=== PATIENT | female | born 2000 | race Caucasian/White ===

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

== ENCOUNTER → 2022-02-24 | Outpatient (CLI) | payer OTHER, SELFPAY ==
[2022-02-24 09:12] LABS: Hematocrit 28.2 % (37-47); Hemoglobin 8.9 g/dL (12.0-15.0); Mean Corp Hgb Conc 31.6 g/dL (32-36); Mean Corpuscular Hgb 23.6 pg (27.0-32.0); Mean Corpuscular Volume 74.8 fL (81-99); Mean Platelet Vol. 10.3 fl (6.2-12.0); Platelet Count 306 K/mm3 (150-450); RBC Distribution Width CV 14.6 % (11.6-14.6); RBC Distribution Width SD 39.6 fl (35.1-43.9); Red Blood Count 3.77 M/mm3 (4.2-5.4); White Blood Count 14.9 K/mm3 (4.4-11.0)
[2022-02-24 09:19] LABS: Glucose Challenge Gest 1H 50g 113 mg/dL (70-140)
== END | disposition home or self-care (01) ==
PROVIDERS: Visit Provider Student in an Organized Health Care Education/Training Program
DX: O23.593 Infection of other part of genital tract in pregnancy, third trimester (principal); N76.0 Acute vaginitis; Z3A.00 Weeks of gestation of pregnancy not specified
CPT/HCPCS: 36415; 82950; 85027

== ENCOUNTER → 2022-04-09 | Outpatient (CLI) | payer OTHER, SELFPAY ==
[2022-04-09 11:57] LABS: Hemoglobin 9.7 g/dL (12.0-15.0); Mean Corp Hgb Conc 30.3 g/dL (32-36); Mean Corpuscular Hgb 21.9 pg (27.0-32.0); Mean Corpuscular Volume 72.4 fL (81-99); Mean Platelet Vol. 10.4 fl (6.2-12.0); Platelet Count 317 K/mm3 (150-450); RBC Distribution Width CV 16.9 % (11.6-14.6); RBC Distribution Width SD 43.1 fl (35.1-43.9); Red Blood Count 4.42 M/mm3 (4.2-5.4); White Blood Count 11.4 K/mm3 (4.4-11.0)
[2022-04-09 12:17] LABS: ALB/GLOB Ratio 0.7 RATIO (0.9-2.4); AST(SGOT) 16 U/L (15-37); Alanine Aminotransfer ALT/SGPT 16 U/L (13-56); Albumin, Serum 2.9 g/dL (3.2-5.0); Alkaline Phosphatase 104 U/L (45-117); Anion Gap 6 (5-15); BUN 8 mg/dL (7-18); BUN/Creat Ratio 14.7 RATIO (10-20); Calcium,Total 8.8 mg/dL (8.5-10.1); Chloride 107 mmol/L (98-107); Creatinine, Serum 0.55 mg/dL (0.55-1.02); EST Glomerular Filtration Rate 151 mL/min (>60); Est Glom Filt Rate - Afr Amer 182 mL/min (>60); Ferritin 3 ng/mL (8-252); Globulin 3.9 g/dL (2.2-4.2); Glucose 102 mg/dL (74-106); Potassium 3.6 mmol/L (3.5-5.1); Protein, Total 6.8 g/dL (6.4-8.2); Sodium Level 138 mmol/L (136-145)
== END | disposition home or self-care (01) ==
PROVIDERS: Visit Provider Student in an Organized Health Care Education/Training Program
DX: O99.891 Other specified diseases and conditions complicating pregnancy (principal); R11.0 Nausea; O99.013 Anemia complicating pregnancy, third trimester; Z3A.00 Weeks of gestation of pregnancy not specified
CPT/HCPCS: 36415; 80053; 82728; 85027

== ENCOUNTER → 2022-04-28 | Outpatient (CLI) | payer OTHER, SELFPAY ==
[2022-04-28 11:58] LABS: Hematocrit 33.9 % (37-47); Hemoglobin 9.9 g/dL (12.0-15.0); Mean Corp Hgb Conc 29.2 g/dL (32-36); Mean Corpuscular Hgb 21.4 pg (27.0-32.0); Mean Corpuscular Volume 73.4 fL (81-99); Platelet Count 328 K/mm3 (150-450); RBC Distribution Width CV 19.8 % (11.6-14.6); RBC Distribution Width SD 50.4 fl (35.1-43.9); Red Blood Count 4.62 M/mm3 (4.2-5.4); White Blood Count 12.2 K/mm3 (4.4-11.0)
== END | disposition home or self-care (01) ==
PROVIDERS: Visit Provider Obstetrics & Gynecology
DX: O99.013 Anemia complicating pregnancy, third trimester (principal); Z3A.00 Weeks of gestation of pregnancy not specified; Z36.85 Encounter for antenatal screening for Streptococcus B
CPT/HCPCS: 36415; 85027; 87081

== ENCOUNTER 2022-05-10 23:20 | Outpatient (CLI) | payer OTHER, SELFPAY ==
[2022-05-10 23:34] VITALS: BP 134/85; PULSE 98
[2022-05-10 23:42] VITALS: BMI 26.9
[2022-05-11 01:14] VITALS: PULSE 66; O2SAT 97
--- NOTE | 2022-05-11 08:28 | PCM.PN.BLA ---
Progress Note 22-year-old G1 at 38/5 weeks presenting with contractions. Patient had intercourse earlier in the evening, reports contractions. Denies leaking of fluid or vaginal bleeding. Cervical exam 2 cm per RN, unchanged on repeat examination. Contractions spaced. Patient appeared comfortable in room per RN. Discharge home with labor precautions as there is no cervical change, patient on labor. status reassuring, heart rate 120/moderate variability/+ accelerations/-decelerations. Follow-up in office as routine.
== END 2022-05-11 01:45 | disposition home or self-care (01) ==
LOC: WPOUT 23:29 → WP 23:29
PROVIDERS: Visit Provider Student in an Organized Health Care Education/Training Program
DX: O47.1 False labor at or after 37 completed weeks of gestation (principal); Z3A.38 38 weeks gestation of pregnancy
CPT/HCPCS: 59025; 59050; 99218; G0378

== ENCOUNTER 2022-05-24 13:18 | Inpatient (IN) | payer OTHER, SELFPAY ==
[2022-05-24] VITALS (33 sets, daily range): BP systolic 104–146; BP diastolic 55–92; PULSE 53–111; RESP 18; TEMP 36.6–37.2; O2SAT 84–100; BMI 26.6
[2022-05-24] MEDS: LACTATED RINGERS 500 ML 999 ML IV (13:40)
[2022-05-24 13:52] LABS: Absolute Lymphocyte Count 2.36 X10^3/uL (0.83-4.51); Absolute Neutrophil Count 12.7 X10^3/uL (2.0-7.7); Basophil# 0.07 X10^3/uL; Basophil% 0.4 % (0-1); Eosinophil# 0.07 X10^3/uL; Eosinophils% 0.4 % (0-5); Hematocrit 37.2 % (37-47); Hemoglobin 11.9 g/dL (12.0-15.0); Lymphocyte # 2.36 X10^3/ul (0.83-4.51); Lymphocyte % 14.3 % (19-41); Mean Corpuscular Hgb 23.4 pg (27.0-32.0); Mean Corpuscular Volume 73.2 fL (81-99); Monocyte# 1.17 X10^3/uL; Monocyte% 7.1 % (0-10); NRBC Flagged by Analyzer 0 % (0-5); Neutrophil % 77.2 % (47-70); POSITIVE MORPHOLOGY YES; Platelet Count 294 K/mm3 (150-450); RBC Distribution Width CV 22.8 % (11.6-14.6); RBC Distribution Width SD 58.4 fl (35.1-43.9); Red Blood Count 5.08 M/mm3 (4.2-5.4); White Blood Count 16.5 K/mm3 (4.4-11.0)
[2022-05-24 13:53] LABS: Differential Indicated SCAN CRITERIA MET
[2022-05-24] MEDS: Lactated Ringers 1,000 ML 50 ML IV (14:00)
[2022-05-24] MEDS: fentaNYL-bupivacaine (epidural) 100 ML BAG EPIDURAL ×2 (14:40→19:18)
[2022-05-24 14:45] LABS: Anisocytosis 1+
--- NOTE | 2022-05-24 15:56 | PCM.HP.BLA ---
History and Physical Date of Admission: 05/24/22 Chief complaint: Contractions History present illness: 22-year-old at 40 weeks and 0 days with WALE 05/24/2022 by LMP arrives with contractions. Denies headache, visual changes, chest pain, shortness of breath, nausea vomit, right upper quadrant pain. Patient states good movement. Obstetric history: G1: Current Past medical history: None Medications: vitamin Past surgical history: Heel surgery Allergies: No known drug allergies Social history: Denies smoking, alcohol use, drug use Family history: Denies history DVT or PE Review of systems: Besides above pertinent positives a full review of systems was performed and found to be negative Physical exam: Vitals: Blood pressure 125/60 pulse 90 SPO2 98% on room air General: Normal-appearing no acute distress HEENT: Normocephalic/atraumatic no cervical lymphadenopathy Cardiac/respiratory: No use of excess muscles, nonlabored breathing Abdomen: Soft, nontender, gravid Pelvic exam: Cervical exam 5/80/-2. AROM clear fluid Extremities: No peripheral edema normal peripheral pulses Psych: Normal affect normal demeanor nonpressured speech Labs: White blood cell count 16.5 hemoglobin 11.9 hematocrit 37.2% platelets 294. Blood type B+ antibody negative Assessment plan: 22-year-old at 40 weeks and 0 days in labor Admit labor and delivery CEFM GBS negative Routine orders Anesthesia to see
[2022-05-24] MEDS: Lactated Ringers 1,000 ML 200 ML IV (17:22)
[2022-05-24] MEDS: Oxytocin 30 units/NS 500 ml 30 UNITS/500 ML IV.SOLN 334 UNITS IV (20:40)
--- NOTE | 2022-05-24 20:50 | EX.PCM.OBRPT ---
Vaginal Delivery Findings Description of Procedure: Normal spontaneous vaginal delivery of a viable female infant, vertex CATIE. Head and shoulders delivered with ease. Cord cut and clamped. Baby handed off to patient. Placenta delivered via cord traction and fundal massage. First-degree midline perineal laceration and right labial laceration noted and repaired in typical fashion. EBL 250 cc Apgars 9/9
[2022-05-24] MEDS: 0.9% Saline Lock 10 ML Syringe IV (23:24)
[2022-05-25 00:37] VITALS: BP 120/69; PULSE 84; TEMP 37.1; O2SAT 96
[2022-05-25] MEDS: Acetaminophen 500 MG Tablet 1000 MG PO ×2 (01:32→21:43)
[2022-05-25] MEDS: Ibuprofen 600 MG Tablet PO ×2 (01:32→12:10)
--- NOTE | 2022-05-25 03:02 | NURSING ---
Care assumed from IRWIN Modi. Jonny RN
[2022-05-25 04:00] VITALS: BP 121/76; PULSE 88; RESP 16; TEMP 36.4; O2SAT 96
--- NOTE | 2022-05-25 07:34 | PN.OBGYN_ITS ---
Subjective Subjective No overnight complaint Objective Data Objective Data Vital Signs: Vital Signs Temp Pulse Resp BP Pulse Ox O2 Del Method 97.5 F L 88 16 121/76 H 96 Room Air 05/25/22 04:00 05/25/22 04:00 05/25/22 04:00 05/25/22 04:00 05/25/22 04:00 05/25/22 04:00 Oxygen Delivery Method Room Air Weight: 170 lb 3.15 oz Body Mass Index (BMI) 26.6 Intake & Output: Intake and Output for Last 24 Hours 05/23/22 05/24/22 05/25/22 23:59 23:59 23:59 Intake Total 3982.67 / 3982.67 Output Total 1050 / 1050 800 / 800 Balance 2932.67 / 2932.67 -800 / -800 Lab / Micro Data Result Diagrams: 05/24/22 13:35 Labs: Laboratory Results - last 24 hr 05/24/22 13:35: WBC 16.5 H, RBC 5.08, Hgb 11.9 L, Hct 37.2, MCV 73.2 L, MCH 23.4 L, MCHC 32.0, RDW Std Deviation 58.4 H, RDW Coeff of Norma 22.8 H, Plt Count 294, MPV 11.0, Immature Gran % (Auto) 0.600, Neut % (Auto) 77.2 H, Lymph % (Auto) 14.3 L, [place] % (Auto) 7.1, Eos % (Auto) 0.4, Baso % (Auto) 0.4, Absolute Neuts (auto) 12.7 H, Absolute Lymphs (auto) 2.36, Nucleated RBC % 0, Anisocytosis 1+ 05/24/22 13:35: Blood Type B POSITIVE, Antibody Screen NEGATIVE Micro: Microbiology 05/24/22 13:35 Nasal Secretion SARS-CoV-2 Antigen (Rapid) - Final Physical Exam Const alert, oriented x3, no apparent distress, average body habitus, healthy appearing and well nourished HEENT normocephalic Eyes PERRL Neck full ROM Resp normal respiratory effort, no retractions and no use of accessory muscles Extremity normal to inspection, full ROM and no clubbing, cyanosis or edema Neuro moves all extremities and no focal motor deficits Psych mental status grossly normal, affect normal, speech normal and activity/motor behavior normal Assessment & Plan (1) Vaginal delivery: PLAN: day 1. Breast-feeding, to see. Likely home tomorrow
--- NOTE | 2022-05-25 07:40 | NURSING ---
bedside report given to Constance Mensah RN who is assuming care of pt at this time
[2022-05-25 08:00] VITALS: BP 110/74; PULSE 78; RESP 18; TEMP 36.8
[2022-05-25 12:00] VITALS: BP 124/78; PULSE 84; RESP 16; TEMP 36.8
[2022-05-25] MEDS: Senna/Docusate Sodium 1 Tablet PO (12:09)
[2022-05-25 16:00] VITALS: BP 112/75; PULSE 65; RESP 16; TEMP 36.8
[2022-05-25 20:54] VITALS: BP 122/68; PULSE 82; RESP 16; TEMP 36.2; O2SAT 96
[2022-05-26 02:40] VITALS: BP 119/78; PULSE 76; RESP 16; TEMP 36.3; O2SAT 95
[2022-05-26] MEDS: Ibuprofen 600 MG Tablet PO (02:40)
[2022-05-26 08:45] VITALS: BP 123/76; PULSE 71; RESP 14; TEMP 36.2
--- NOTE | 2022-05-26 09:13 | PCM.PN.OB ---
Subjective Subjective No issues overnight. Reports tired due to lack of sleep. Denies depressed mood. Has some low back pain and minimal cramping, both alleviated with pain meds. Denies heavy lochia. She is out of bed, ambulating and voiding without difficulty. She is nursing and working on latch. Objective Data Objective Data Vital Signs: Vital Signs Temp Pulse Resp BP Pulse Ox O2 Del Method 97.1 F L 71 14 123/76 H 95 Room Air 05/26/22 08:45 05/26/22 08:45 05/26/22 08:45 05/26/22 08:45 05/26/22 02:40 05/26/22 08:45 Oxygen Delivery Method Room Air Weight: 77.2 kg Body Mass Index (BMI) 26.6 Intake & Output: Intake and Output for Last 24 Hours 05/24/22 05/25/22 05/26/22 23:59 23:59 23:59 Intake Total 3982.67 / 3982.67 Output Total 1050 / 1050 1250 / 1250 Balance 2932.67 / 2932.67 -1250 / -1250 Lab / Micro Data Result Diagrams: 05/24/22 13:35 Micro: Microbiology 05/24/22 13:35 Nasal Secretion SARS-CoV-2 Antigen (Rapid) - Final Physical Exam Const alert, oriented x3 and no apparent distress General Appearance: cooperative and comfortable HEENT normocephalic Resp Auscultation: clear to auscultation bilaterally Cardio regular rate, regular rhythm, S1 normal heart sound and S2 normal heart sound OB / External & Speculum: other Uterus Palpation: other OB Fundus firm and nontender Extremity no calf tenderness and no pedal edema General Extremity: edema bilateral Assessment & Plan (1) Vaginal delivery: PLAN: Plan PPD#2 s/p B positive Rubella immune Routine care Plan for d/c home today
--- NOTE | 2022-05-26 10:35 | PCM.DC.SUM ---
Providers Date of Admission: 05/24/22 Date of Discharge: 05/26/22 Reason For Visit: VAGINAL DELIVERY Diagnosis Discharge Diagnosis (1) Vaginal delivery: Status: Acute Code(s): O80 - Encounter for full-term uncomplicated delivery Plan PPD#2 s/p B positive Rubella immune Routine care Plan for d/c home today Medications at Discharge Home Medications ferrous sulfate 325 mg (65 mg iron) tablet 325 mg PO DAILY Check with primary doctor 05/10/22 [id number] 1 mg tablet 1 tab PO DAILY Check with primary doctor 05/10/22 ibuprofen 600 mg tablet 600 mg PO Q8H PRN PRN Pain Score 1-3 #30 tabs 05/26/22 Hospital Course Operations None Procedures None Summary of Care Provided Hospital Course: 22yo G1 admitted at 40 weeks gestation in labor. She had an uncomplicated . Her postop course was unremarkable and she was discharged to home on day #2. Weight / BMI Weight Weight: 77.2 kg Body Mass Index (BMI) 26.6 ABG / Lab / Microbiology Data Result Diagrams: 05/24/22 13:35 Microbiology: Microbiology 05/24/22 13:35 Nasal Secretion SARS-CoV-2 Antigen (Rapid) - Final D/C Instructions Discharge Diet: No restrictions Discharge Activity: Return to Normal Activity and May Shower May resume sexual activity in: 6 weeks Lifting Restricted to (Lbs): 20 Call your doctor if you observe: Fever of 101 or Higher, Inability to urinate, Using more than 1 pad per hour, Shortness of breath, Chest pain, Calf discomfort, Uncontrolled pain and - (Persistent or severe headache) Please Follow Up With: Nery Patel DO When: 3 weeks for telehealth follow up 6 weeks for visit Meaningful Use Info Meaningful Use Diagnoses (Choose all that apply): None applicable Discharge Plan Admission Admit Date/Time: 05/24/22 13:18 Primary Reason for Your Visit: Vaginal delivery Attending Provider: Carlos Patel Instructions Patient Instructions: After a Vaginal Discharge Orders/Prescriptions Prescriptions: New ibuprofen 600 mg Tablet 600 mg PO Q8H PRN PRN (Reason: Pain Score 1-3) Qty: 30 0RF Continued ferrous sulfate 325 mg (65 mg iron) Tablet 325 mg PO DAILY [id number] 1 mg Tablet 1 tab PO DAILY Disposition Disposition (needs filled in before D/C Order can be placed): Home, Self Care
--- NOTE | 2022-05-26 10:37 | DCINST_ITS ---
Discharge Instructions Diet Discharge Diet: No restrictions Activity May resume sexual activity in: 6 weeks Dressing / Incision Call your doctor if you observe: Fever of 101 or Higher, Inability to urinate, Using more than 1 pad per hour, Shortness of breath, Chest pain, Calf discomfort, Uncontrolled pain and - (Persistent or severe headache) Follow Up Care Please Follow Up With: Nery Patel DO When: 3 weeks for telehealth 6 weeks for visit Test Results: Test results from this visit will be discussed in further detail at your follow- up appointment, if applicable. Discharge Plan Admission Admit Date/Time: 05/24/22 13:18 Primary Reason for Your Visit: Vaginal delivery Attending Provider: Carlos Patel Instructions Patient Instructions: After a Vaginal Discharge Orders/Prescriptions Prescriptions: New ibuprofen 600 mg Tablet 600 mg PO Q8H PRN PRN (Reason: Pain Score 1-3) Qty: 30 0RF Continued ferrous sulfate 325 mg (65 mg iron) Tablet 325 mg PO DAILY [id number] 1 mg Tablet 1 tab PO DAILY Disposition Disposition (needs filled in before D/C Order can be placed): Home, Self Care
== END 2022-05-26 11:00 | disposition home or self-care (01) | DRG 807 ==
PROVIDERS: Admitting Provider Obstetrics & Gynecology; Visit Provider Obstetrics & Gynecology
DX: O70.0 First degree perineal laceration during delivery (principal); Z37.0 Single live birth; Z3A.40 40 weeks gestation of pregnancy
CPT/HCPCS: 59025; 59050; 85025; 86850; 86900; 86901; 87811; 99218; J7120; A4216; G0378

== ENCOUNTER 2024-08-18 06:57 | Emergency (ER) | payer OTHER, SELFPAY ==
[2024-08-18 06:58] VITALS: BP 127/82; PULSE 72; RESP 19; TEMP 36.6; O2SAT 100; BMI 25.4
--- NOTE | 2024-08-18 07:05 | ED.VIS.FEGU ---
HPI HPI - Female History of Present Illness Chief Complaint: Vag Bld, Preg Narrative Narrative: Chief complaint and HPI: 24-year-old female who is G5, P1, A3 presents for evaluation of vaginal bleeding in early . Patient states she ended her last menstrual cycle on 08/10/2024. She states she had 2 days of vaginal spotting in which she took a test on 08/13/2024. She states it was positive. She states she has taken 2 tests since that have been positive. Patient states yesterday she started having vaginal spotting that has increased in frequency and heaviness. She states she has seen some small clots. She has gone through 2 pads. She endorses some mild abdominal cramping. She denies any fever, chills, shortness of breath, chest pain, nausea, vomiting, dysuria, hematuria, vaginal discharge. Review of systems: See HPI Medications: As listed on the chart Allergies: As listed on the chart PFSH: Per chart Vital signs: As listed on the chart. Reviewed. Physical exam: Gen: A&O x3, NAD Head: Normocephalic, atraumatic Eyes: No sclera icterus, conjunctiva clear ENT: Moist mucous membranes Neck: Trachea midline, No JVD CV: RRR, no murmurs, no peripheral edema Resp: Lungs CTA BL, no w/r/c GI: Abd soft, non-distended, non-tender, no r/r/g Pelvic: Normal external genitalia. No lesions, masses, or rashes appreciated. + active vaginal bleeding. No discharge noted. Cervix is non-friable. Cervix is closed. Musc: Full ROM, no deformity Skin: Warm, dry Neuro: Alert, oriented, grossly intact, sensation intact Psych: Cooperative, appropriate mood and affect [facility] Medical History (Updated 08/18/24 @ 10:[address] Daniel Bonilla, DO) Miscarriage Home Medications ?Medication ?Instructions ?Recorded ?Last Taken ?Type pdqvfnhx-[id number]-[id number]-FA 1 mg 1 tab PO DAILY Check with primary 05/10/22 1 Day Ago History tablet doctor ~05/23/22 Allergy/AdvReac Type Severity Reaction Status Date / Time No Known Allergies Allergy Verified 08/18/24 06:59 Surgical History History of surgery Social History Smoking Status: Light Smoker (<10/day) EXAM Physical Exam Const Vital Signs: 08/18/24 06:58 08/18/24 08:58 08/18/24 10:00 Temperature 97.9 F Temperature Source Oral Pulse Rate 72 64 78 Respiratory Rate 19 H 18 16 Blood Pressure 127/82 H 110/64 116/76 Blood Pressure Mean 97 79 89 Pulse Ox 100 98 98 Oxygen Delivery Method Room Air Room Air Room Air 08/18/24 10:28 Temperature 97.6 F L Temperature Source Pulse Rate 64 Respiratory Rate 18 Blood Pressure 118/78 Blood Pressure Mean 91 Pulse Ox 99 Oxygen Delivery Method MDM MDM MDM Narrative Medical decision making narrative: 24-year-old female who is G5, P1, A3 presents for evaluation of vaginal bleeding in early . Differential diagnosis includes but is not limited to ectopic , complete , incomplete , bleeding in early , anemia. Laboratory workup ordered including transvaginal ultrasound. Blood type not obtained given that patient is less than 13 weeks and therefore RhoGAM is not indicated regardless. Pelvic exam performed. Patient has vaginal bleeding with a closed cervix. CBC without leukocytosis. Patient has baseline anemia with a hemoglobin of 11.4. Beta-hCG is only 42. He would suspect that this would be higher given that she had a positive test on 08/13. I suspect that she is miscarrying. Urine is positive for blood and ketones. Negative for infection. Ultrasound without any intrauterine gestational sac. Suspect ectopic versus spontaneous miscarriage versus early . Given that her beta-hCG is only 47. Her previous test was 08/13 I suspect patient is having a spontaneous miscarriage. Low suspicion for ectopic . Patient used to follow with Dr. Patel who no longer works here. I reached out to the on-call provider for OB, Dr. Lu. She agrees with repeat beta-hCG and follow-up in their clinic. Patient was updated of all results. Emotional support was provided. Patient is able to discharge home. Return precautions were explained. Impression: 1. Vaginal bleeding in early 2. Suspect spontaneous Lab Data Labs: Laboratory Results - last 24 hr 08/18/24 08/18/24 07:34 08:40 WBC 10.2 RBC 4.51 Hgb 11.4 L Hct 35.7 L MCV 79.2 L MCH 25.3 L MCHC 31.9 L RDW Std Deviation 45.5 H RDW Coeff of Norma 15.9 H Plt Count 301 MPV 9.9 Immature Gran % (Auto) 0.300 Neut % (Auto) 54.8 Lymph % (Auto) 29.9 [place] % (Auto) 11.3 H Eos % (Auto) 2.8 Baso % (Auto) 0.9 Absolute Neuts (auto) 5.6 Absolute Lymphs (auto) 3.03 Nucleated RBC % 0 HCG, Quant 42 H Serum , Qual Cancelled Urine Color Red Urine Clarity Turbid Urine pH 6.5 Ur Specific [place] 1.020 Urine Protein 500 H Urine Glucose (UA) Normal Urine Ketones 5 H Urine Occult Blood 250 H Urine Nitrite Negative Urine Bilirubin Negative Urine Urobilinogen Normal Ur Leukocyte Esterase Negative Urine RBC > 100 SEEN Urine WBC >100 SEEN Ur Squamous Epith Cells 0-5 SEEN Urine Bacteria 0 SEEN Urine Mucus 0 SEEN Radiography Diagnostic Testing: Clinical Impression(s) from Imaging Studies Obstetrics Ultrasound 08/18/24 07:21 IMPRESSION: No intrauterine gestational sac identified. Recommend correlation with serial beta hCG levels and follow-up ultrasound to assess for ectopic or spontaneous miscarriage versus very early intrauterine . Electronically Signed: Joslyn Matta MD at 9:18 EDT , Discharge Plan Triage Chief Complaint: Vag Bld, Preg ED Provider: Daniel Bonilla Dx/Rx/DC Orders Clinical Impression: Vaginal bleeding affecting early , Miscarriage, threatened, early Prescriptions: No Action [id number]-[id number]-[id number]-FA 1 mg Tablet 1 tab PO DAILY Other Ambulatory Orders: HCG BETA-SUBUNIT QUANT. (Routine) Timeframe: 2 Days Facility: [facility] - Location: Laboratory Ordered By: Dr. Daniel Bonilla Primary Care Provider: Makenzie Robert NP Referrals: Kelly Lu MD [Med Staff - Active Staff] - 3-5 Days Makenzie Robert NP, THROW OUT CLERK-C [Primary Care Provider] - 3-5 Days Activity Restrictions/Additional Instructions: You need to have your beta hCG rechecked. You need your levels rechecked on 08/21. you need to call and make an appointment today with the OB provider above. Print Language: Portuguese Disposition Disposition: Home, Self Care Discharge Date/Time: 08/18/24 10:29
--- NOTE | 2024-08-18 07:21 | US_ITS ---
HISTORY: Bleeding in early -- HCG 42. LMP 07/11/2024. TECHNIQUE: Transvaginal pelvic ultrasound was performed. 44 images. COMPARISON: None. FINDINGS: UTERUS: 9.4 x 6.8 x 4.8 cm. Anteverted. ENDOMETRIAL COMPLEX: 8 mm in thickness. No intrauterine gestational sac identified. RIGHT OVARY: 1.6 x 2.4 x 2.7 cm. 12 mm dominant follicle. LEFT OVARY: 1.5 x 2.6 x 3 cm. 8 mm corpus luteal cyst. FREE FLUID: None. US/Transvaginal w/Preg US IMPRESSION: No intrauterine gestational sac identified. Recommend correlation with serial beta hCG levels and follow-up ultrasound to assess for ectopic or spontaneous miscarriage versus very early intrauterine . Electronically Signed: Joslyn Matta MD at 9:18 EDT ,
[2024-08-18 07:43] LABS: Absolute Lymphocyte Count 3.03 X10^3/uL (0.83-4.51); Absolute Neutrophil Count 5.6 X10^3/uL (2.0-7.7); Basophil# 0.09 X10^3/uL; Basophil% 0.9 % (0-1); Eosinophil# 0.28 X10^3/uL; Eosinophils% 2.8 % (0-5); Hematocrit 35.7 % (37-47); Hemoglobin 11.4 g/dL (12.0-15.0); Lymphocyte # 3.03 X10^3/ul (0.83-4.51); Lymphocyte % 29.9 % (19-41); Mean Corp Hgb Conc 31.9 g/dL (32-36); Mean Corpuscular Hgb 25.3 pg (27.0-32.0); Mean Corpuscular Volume 79.2 fL (81-99); Mean Platelet Vol. 9.9 fl (6.2-12.0); Monocyte# 1.15 X10^3/uL; Monocyte% 11.3 % (0-10); NRBC Flagged by Analyzer 0 % (0-5); Neutrophil # 5.57 X10^3/uL (2.7-7.7); Neutrophil % 54.8 % (47-70); Platelet Count 301 K/mm3 (150-450); RBC Distribution Width CV 15.9 % (11.6-14.6); RBC Distribution Width SD 45.5 fl (35.1-43.9); Red Blood Count 4.51 M/mm3 (4.2-5.4); White Blood Count 10.2 K/mm3 (4.4-11.0)
[2024-08-18 08:05] LABS: hCG Titer Quant., Serum 42 mIU/mL (1-3)
[2024-08-18 08:46] LABS: Bacteria 0 SEEN /hpf (None Seen); Mucous, Urine 0 SEEN /hpf (<or=2+)
[2024-08-18 08:52] LABS: Color, Urine Red (Yellow); Glucose, Dipstick Normal (Normal); Ketone-Dipstick 5 mg/dl (Negative); Leukocyte Esterase-Dipstick Negative /ul (Negative); Nitrite-Dipstick Negative (Negative); Occult Blood-Urine 250 /ul (Negative); Protein-Dipstick 500 mg/dl (Negative); Urine Bilirubin Dipstick Negative (Negative); Urine Clarity Turbid (Clear); Urine Urobilinogen Normal (Normal); Urine pH 6.5 (5.0 - 8.0)
[2024-08-18 08:58] VITALS: BP 110/64; PULSE 64; RESP 18; O2SAT 98
[2024-08-18 09:08] LABS: Red Blood Cells-Urine > 100 SEEN /hpf (0-5); Squamous Epithelial Cells - UA 0-5 SEEN /hpf (5-10); White Blood Cells >100 SEEN /hpf (0-5)
[2024-08-18 10:00] VITALS: BP 116/76; PULSE 78; RESP 16; O2SAT 98
[2024-08-18 10:28] VITALS: BP 118/78; PULSE 64; RESP 18; TEMP 36.4; O2SAT 99
== END 2024-08-18 10:29 | disposition home or self-care (01) ==
PROVIDERS: Emergency Provider Surgery; PCP Nurse Practitioner Family; Visit Provider Surgery
DX: O20.9 Hemorrhage in early pregnancy, unspecified (principal); F17.200 Nicotine dependence, unspecified, uncomplicated; O99.331 Smoking (tobacco) complicating pregnancy, first trimester; Z3A.00 Weeks of gestation of pregnancy not specified
CPT/HCPCS: 76817; 81001; 84702; 85025; 99283